=== PATIENT | male | born 1945 | race Caucasian/White ===

== ENCOUNTER → 2016-11-20 | Day surgery (SDC) | payer MEDICARE ==
[~2016-11-20] VITALS: Ht 188 cm; Wt 96.0 kg
[~2016-11-20] MED LIST: 0.9% Sodium Chloride 1,000 ML IV PRN; AMLO5TAB2 PO; ASPI-973 PO; CLON0.1T PO; COLC0.6T52 PO; DEXT5TAB23 PO; FLUT16SP NS; HYDR-3939 PO; HYDR12.55 PO; HYG25 PO; IBUP200C PO; LORA10CA9 PO; LOSA50TA37 PO; METF500T4 PO; POTA20TA16 PO; Sodium Chloride LOK Flush 10 mL Syringe IV PRN; TADA20TA PO; fentaNYL-PF 50 mCg/mL 2 mL Inj IVPUSH PRN
[2016-11-20 11:53] VITALS: BP 130/73; PULSE 52; RESP 14; O2SAT 99
--- NOTE | 2016-11-20 13:58 | PCM.ENDEGD ---
EGD Date of Service: Nov 20, 2016 Physician Daniel Peoples MD Pre Procedure Diagnosis: Dysphagia Post Procedure Dx & Findings: Esophageal lesion and gastritis Procedure Esophagogastroduodenoscopy PROCEDURE IN DETAIL: After proper sedation, Olympus video endoscope was inserted into patient's mouth and esophagus was successfully intubated. Scope introduced esophagus. Esophagus showed normal shiny whitish mucosa consistent with squamous cell component. Z line was at 40 cm from the incisors. Right below the Z line, there was one and a half centimeter polypoid structure. Narrow banding used. It appeared adenomatous structure with some hyperpigmentation. Biopsies obtained including the central erosion. Scope further advanced to the stomach. Stomach showed streaks of isolated redness consistent with gastritis from the antrum body of the stomach. I have sees a pain. . Cardia fundus body antrum pylorus were all visualized. Retroflexion was done. Stomach was easily inflated and deflatable using air. Scope further advanced to the distal duodenum. Duodenum revealed normal villous structures with normal appearing folds without any mass ulcer erosion. Impression 1 cm esophageal polypoid lesion status post biopsy. Cause of dysphagia. Gastritis Recommendation Await biopsies If biopsy benign, repeat EGD in 8 weeks after PPI treatment. Prilosec 40 mg once a day. Presedation Assessment Risks and Benefits Informed consent was obtained from the patient after all risks and benefits including but not limited to drug reaction, infection, pain, bleeding, perforation, as well as alternatives were discussed. Patient monitoring Continuous pulse oximetry, cardiac monitoring, blood pressure monitoring, IV access, and oxygen at 2L per nasal cannula. Periprocedural Fentanyl: Fentanyl 150mcg Incrementally Midazolam: Midazolam 7mg Incrementally Complications There were no periprocedural complications identified. Post Procedure Plan Post Procedure Recommendations 1. Restrict activities today. 2. Resume normal activities in the morning. 3. Resume medications. 4. GERD behavioral modification: - Avoid fatty, acidic, spicy, large meals - Do not lie down after meals - Do not eat or drink anything for at least 2 1/2 hours before going to bed at night - Discontinue tobacco and alcohol - Decrease or avoid caffeine - Avoid chocolate and mints - Decrease weight - Avoid aspirin and non steroidal anti-inflammatory agents (NSAID) such as Aleve, Advil, Mobic, Naproxen, Ibuprofen, etc 5. Add proton pump inhibitor. Take 30 minutes before 1st meal of the day. 6. Patient informed of normal post procedure side effects as bloating, drowsiness, blood streaking in the stool 7. If gastric biopsy reveal H.pylori, continue with appropriate treatment 8. If small bowel biopsy reveals celiac, continue with appropriate treatment 9. Please don't hesitate to call me with any questions Daniel Peoples MD Nov 20, 2016 13:58
[2016-11-20 14:00] VITALS: BP 122/70; PULSE 71; RESP 14; O2SAT 97
--- NOTE | 2016-11-20 14:00 | PCM.ENDCOL ---
Colonoscopy Date of Service: Nov 20, 2016 Physician Daniel Peoples MD Pre Procedure Diagnosis: Screening Post Procedure Dx & Findings: Polyp hemorrhoids diverticuli Procedure Colonoscopy PROCEDURE IN DETAIL: Prep adequate Withdrawal time 20 minutes After unremarkable rectal examination the Olympus video colonoscope was inserted patient's anal canal and was advanced to cecum. Landmarks were identified including the ileocecal valve and appendiceal orifice. Scope was withdrawn systematically. Visualized colonic mucosa showed healthy shiny mucosa with normal healthy-appearing vasculature. In the cecum, there was a 8 mm polyp. This is improving therefore we ended up taking this out piecemeal time. We will use a snare and biopsy forceps. There was a 3 mm polyp which was removed completely using cold snare. In the sigmoid colon there are a few medium-sized diverticuli. In the rectum retroflexion was done which showed hemorrhoids. Anal canal was inspected carefully on the way out and hemorrhoids noted. Impression Cecal polyp taken out piecemeal at a time The second cecal polyp was removed completely using cold snare. Diverticuli Hemorrhoids Recommendation Repeat colonoscopy in 1 year Diverticular diet Presedation Assessment Risks and Benefits Informed consent was obtained from the patient after all risks and benefits including but not limited to drug reaction, infection, pain, bleeding, perforation, as well as alternatives were discussed. Patient monitoring Continuous pulse oximetry, cardiac monitoring, blood pressure monitoring, IV access, and oxygen at 2L per nasal cannula. Complications There were no periprocedural complications identified. Post Procedure Plan Post Procedure Recommendations 1. Restrict activities today. 2. Resume normal activities in the morning. 3. Resume medications. 4. Patient informed of normal post procedure side effects as bloating, drowsiness, blood streaking in the stool. 5. average risk CRCS. If colon polyps come back as: -Hyperplastic- can repeat colonoscopy in 10 years -Tubular adenoma- repeat colonoscopy in 5 years -Tubulovillous/villous adenoma- repeat colonoscopy in 3 years -If any dysplasia- return to clinic as soon as possible 6. Please don't hesitate to call me with any questions. Daniel Peoples MD Nov 20, 2016 14:00
[2016-11-20 14:10] VITALS: BP 125/70; PULSE 61; RESP 14; O2SAT 98
--- NOTE | 2016-11-24 11:40 | PATH ---
SURGICAL PATHOLOGY Attending Physician:Daniel Peoples M.D. CASE STATUS: Signed Out PATIENT NAME: HARPER MIRANDA PID: [id number] : 1945 DATE COLLECTED:11/20/2016 00:00 SPECIMEN: 1: Gastric, Biopsy 2: Esophagus, Biopsy 3: Colon, Polyp 4: Colon, Polyp CLINICAL HISTORY: 1). GASTRIC BIOPSY - RULE OUT H PYLORI 2). LESION DISTAL ESOPHAGUS BIOPSY 3). CECAL POLYPS X 2 4). DESCENDING POLYP X 1 FINAL DIAGNOSIS: 1. Stomach, Biopsy: Antral mucosa with mild chronic gastritis. Positive for intestinal metaplasia involving two of the two biopsy fragments. Negative for active inflammation and Helicobacter organisms. Negative for dysplasia or malignancy. 2. Distal esophagus, biopsy: Tenorio's esophagus within glandular mucosa with mild chronic inflammation. Negative for dysplasia or malignancy. 3. Colon Polyp, Biopsy: Sessile serrated adenoma. 4. Colon Polyp, Biopsy: Tubular adenoma. ICD10: K22.7 D12.6 K29.7 GROSS DESCRIPTION: The specimen is received in four formalin filled containers labeled with the patient's name. 1). The specimen is labeled "gastric" and consists of 2 portions of tissue which aggregate to zero but her the 0.2 x 0.2 CM. The specimen is entirely submitted in cassette 1A. 2). The specimen is labeled "distal esophagus" and consists of 4 portions of tissue which aggregate to 0.2 x 0.2 x 0.2 CM. The specimen is entirely submitted in cassette 2A. 3). The specimen is labeled "cecal polyps" and consists of multiple portions of tissue which aggregate to 0.6 x 0.4 x 0.2 CM. The specimen is entirely submitted in cassette 3A. 4). The specimen is labeled "descending polyp" and consists of a 0.3 x 0.3 x 0.2 CM portion of tissue which is entirely submitted in cassette 4A. 11/21/2016DC ICD-9 CODES: CPT CODES: 1: 53077 2: 44018 3: 44149 4: 41898 Electronically Signed Out Derrek Arriola MD, PhD [facility] Pathology [facility] [address] [place] [address], [place] [address] Technical component performed at [facility], [facility] [address], [place], [address]
== END | disposition home or self-care (01) ==
LOC: END 07:47
PROVIDERS: ATTEND Internal Medicine
DX: Z12.11 Encounter for screening for malignant neoplasm of colon (principal); D12.0 Benign neoplasm of cecum; D12.4 Benign neoplasm of descending colon; K57.30 Diverticulosis of large intestine without perforation or abscess without bleeding; K64.8 Other hemorrhoids; Z86.010 Personal history of colon polyps; K29.50 Unspecified chronic gastritis without bleeding; K22.70 Barrett's esophagus without dysplasia; R13.10 Dysphagia, unspecified; E11.9 Type 2 diabetes mellitus without complications; E55.9 Vitamin D deficiency, unspecified; E78.5 Hyperlipidemia, unspecified; I10 Essential (primary) hypertension; G47.30 Sleep apnea, unspecified; Z79.82 Long term (current) use of aspirin; Z79.84 Long term (current) use of oral hypoglycemic drugs
CPT/HCPCS: 43239; 45380; 45385; 99153; G0500; J2250; J3010; J7030